=== PATIENT | male | born 1970 | race Caucasian/White ===

== ENCOUNTER → 2020-02-06 | Day surgery (SDC) | payer SELFPAY ==
[~2020-02-06] MED LIST: MELOXICAM15 MG PO; METOPROLOL SUCC50 MG PO; NITRO-BID21 TD; OMEPRAZOLE20 MG PO; PERCOCET 5/325M1 TAB PO; PROCTOZONE-HC2.5 % RE; [UNRECOGNIZED DRUG - OTHER]; [UNRECOGNIZED DRUG - OTHER]
[2020-02-06 12:26] VITALS: BP 99/58
== END | disposition home or self-care (01) | DRG 347 ==
LOC: ORM 11-21 08:00 → ENDO 11-21 08:00
PROVIDERS: ATTEND Surgery
PROC: 0DJD8ZZ Inspection of Lower Intestinal Tract, Via Natural or Artificial Opening Endoscopic (ICD-10-PCS; principal; 2020-02-06)
PROC: 06BY3ZC Excision of Hemorrhoidal Plexus, Percutaneous Approach (ICD-10-PCS; 2020-02-06)
DX: K64.8 Other hemorrhoids (principal); K57.31 Diverticulosis of large intestine without perforation or abscess with bleeding; Z80.0 Family history of malignant neoplasm of digestive organs; R76.8 Other specified abnormal immunological findings in serum; Z20.828 Contact with and (suspected) exposure to other viral communicable diseases
CPT/HCPCS: C9290